=== PATIENT | male | born 1995 | race African-American/Black ===

== ENCOUNTER 2020-12-26 15:24 | Emergency (ER) | payer SELFPAY ==
[2020-12-26] MEDS ORDERED: NA CHLORIDE 0.9% 1,000 ML ONE (19:35)
[2020-12-26] MEDS ORDERED: ONDANSETRON 4 MG/2 ML VIAL ONE (19:35)
[2020-12-26 19:59] LABS: Absolute Lymphocytes (CBC) 1.1 K/uL (0.7-4.9); Basophils % 0.5 % (0-1.3); Hematocrit 43.7 % (39.6-49.0); Lymphocytes % 18.9 % (15.3-44.8); MPV 8.5 fL (7.6-11.3); RBC Red Blood Cell Count 5.76 M/uL (4.33-5.43)
[2020-12-26 20:31] LABS: SARS-COV-2 RT PCR NEGATIVE (NEGATIVE)
[2020-12-26 20:35] LABS: Albumin 3.8 g/dL (3.4-5.0); Bilirubin Direct 0.1 mg/dL (0-0.2); Bilirubin Total 0.5 mg/dL (0.2-1.0); Potassium 3.7 mmol/L (3.5-5.1); Protein, Total 7.7 g/dL (6.4-8.2)
--- NOTE | 2020-12-26 20:37 | EDPHYS ---
Physician Documentation [facility] Name: Dinh Ochoa Age: 25 yrs Sex: Male : 1995 Arrival Date: 12/26/2020 Time: 15:28 Bed 7 Private MD: ED Physician James Latif HPI: 12/26 20:29 This 25 yrs old Black Male presents to ER via Ambulatory with complaints of kb Vomiting/Diarrhea, Headache. 20:29 The patient presents to the emergency department with nausea, vomiting, diarrhea. kb Onset: The symptoms/episode began/occurred last night. Possible causes: unknown. The symptoms are aggravated by nothing. The symptoms are alleviated by nothing. Associated signs and symptoms: Pertinent positives: diarrhea, nausea, vomiting, bodyaches, headache. Severity of symptoms: At their worst the symptoms were moderate in the emergency department the symptoms are unchanged. The patient has not experienced similar symptoms in the past. The patient has not recently seen a physician. Pt reports nausea, vomiting, diarrhea, headache and bodyaches that started last night and have been worse today. Historical: - Allergies: 16:08 No Known Allergies; ll1 - PMHx: 16:08 None; ll1 - PSHx: 16:08 None; ll1 - Immunization history:: Flu vaccine is not up to date. - Social history:: Smoking status: Patient reports the use of cigarette tobacco products, smokes one-half pack cigarettes per day. ROS: 20:32 Cardiovascular: Negative for chest pain, palpitations, and edema, Respiratory: Negative kb for shortness of breath, cough, wheezing, and pleuritic chest pain, MS/Extremity: Negative for injury and deformity, Skin: Negative for injury, rash, and discoloration. 20:32 Constitutional: Positive for body aches. 20:32 Abdomen/GI: Positive for nausea, vomiting, and diarrhea. 20:32 Neuro: Positive for headache. Exam: 20:32 Constitutional: This is a well developed, well nourished patient who is awake, alert, kb and in no acute distress. Head/Face: Normocephalic, atraumatic. Cardiovascular: Regular rate and rhythm with a normal S1 and S2. No gallops, murmurs, or rubs. No pulse deficits. Respiratory: Respirations even and unlabored. No increased work of breathing, no retractions or nasal flaring. Abdomen/GI: Soft, non-tender. No distention Skin: Warm, dry with normal turgor. Normal color. MS/ Extremity: Pulses equal, no cyanosis. Neurovascular intact. Full, normal range of motion. Neuro: Awake and alert, GCS 15, oriented to person, place, time, and situation. Moves all extremities. Normal gait. Vital Signs: 16:06 BP 146 / 94; Pulse 95; Resp 17; Temp 98.6; Pulse Ox 100% ; Weight 159.66 kg; Height 6 ll1 ft. 7 in. (200.66 cm); Pain 7/10; 20:18 BP 130 / 83; Pulse 88; Resp 18; Pulse Ox 98% ; wh 16:06 Body Mass Index 39.65 (159.66 kg, 200.66 cm) ll1 MDM: 19:08 Patient medically screened. kb 20:32 Data reviewed: vital signs, nurses notes. Data interpreted: Pulse oximetry: on room air kb is 98 %. Interpretation: normal. Counseling: I had a detailed discussion with the patient and/or guardian regarding: the historical points, exam findings, and any diagnostic results supporting the discharge/admit diagnosis, lab results, the need for outpatient follow up, a family practitioner, to return to the emergency department if symptoms worsen or persist or if there are any questions or concerns that arise at home. 12/26 19:13 Order name: Basic Metabolic Panel 12/26 19:13 Order name: CBC with Diff; Complete Time: 20:06 kb 12/26 19:13 Order name: Hepatic Function; Complete Time: 20:36 kb 12/26 19:13 Order name: Lipase; Complete Time: 20:36 kb 12/26 19:13 Order name: IV Saline Lock; Complete Time: 19:28 kb 12/26 19:13 Order name: Labs collected and sent; Complete Time: 19:29 kb 12/26 19:13 Order name: Basic Metabolic Panel; Complete Time: 20:36 EDMS 12/26 20:32 Order name: COVID-19/FLU A+B; Complete Time: 20:33 EDMS Administered Medications: 19:26 Drug: NS 0.9% 1000 ml Route: IV; Rate: 1000 ml; Site: right antecubital; 21:23 Follow up: Response: No adverse reaction; IV Status: Completed infusion 19:28 Drug: Zofran (Ondansetron) 4 mg Route: IVP; Site: right antecubital; 21:23 Follow up: Response: No adverse reaction; Nausea is decreased Disposition: 12/27 07:02 Co-signature as Attending Physician, James Latif MD. rn Disposition: 12/26/20 20:36 Discharged to Home. Impression: Nausea and vomiting, Diarrhea, unspecified. - Condition is Stable. - Discharge Instructions: Food Choices to Help Relieve Diarrhea, Adult, Viral Gastroenteritis, Adult, [id number]. - Prescriptions for Zofran 4 mg Oral Tablet - take 1 tablet by ORAL route every 6 hours As needed; 20 tablet. - Medication Reconciliation Form, Thank You Letter, Antibiotic Education, Prescription Opioid Use form. - Follow up: Emergency Department; When: As needed; Reason: Worsening of condition. Follow up: Private Physician; When: 2 - 3 days; Reason: Recheck today's complaints, Continuance of care, Re-evaluation by your physician. Signatures: Dispatcher [employer] EDMI Felisha Lobo, SIGNAL PROCESSING ENGINEER-C SIGNAL PROCESSING ENGINEER-Ckb James Latif MD MD rn Habalo, Winsy, RN RN [place] [employer] mw2 Jefe Robison, RN RN ll1 Corrections: (The following items were deleted from the chart) 12/26 19:47 19:10 CORONAVIRUS+MR.LAB.BRZ ordered. [facility] EDMI 19:48 19:10 Influenza Screen (A \T\ B)+BA.LAB.BRZ ordered. [facility] EDMI 20:45 20:36 12/26/2020 20:36 Discharged to Home. Impression: Nausea and vomiting; Diarrhea, mw2 unspecified. Condition is Stable. Discharge Instructions: Food Choices to Help Relieve Diarrhea, Adult, Viral Gastroenteritis, Adult, [id number]. Prescriptions for Zofran 4 mg Oral Tablet - take 1 tablet by ORAL route every 6 hours As needed; 20 tablet. and Forms are Medication Reconciliation Form, Thank You Letter, Antibiotic Education, Prescription Opioid Use. Follow up: Emergency Department; When: As needed; Reason: Worsening of condition. Follow up: Private Physician; When: 2 - 3 days; Reason: Recheck today's complaints, Continuance of care, Re-evaluation by your physician. kb
--- NOTE | 2020-12-26 20:37 | ER ---
Nurse's Notes [facility] Name: Dinh Ochoa Age: 25 yrs Sex: Male : 1995 Arrival Date: 12/26/2020 Time: 15:28 Bed 7 Private MD: Diagnosis: Nausea and vomiting;Diarrhea, unspecified Presentation: 12/26 16:06 Chief complaint: Patient states: N/V/D, MONIQUE, body aches, SOB for 1 day. No cough. ll1 Coronavirus screen: Client denies travel out of the [place] in the last 14 days. Coronavirus screen: diarrhea, difficulty breathing, fatigue, headache, muscle pain, nausea, shortness of breath, loss of taste or smell, vomiting. Client presents with at least one sign or symptom that may indicate coronavirus-19. Standard/surgical mask placed on the client. Ebola Screen: Patient denies travel to an Ebola-affected area in the 21 days before illness onset. Initial Sepsis Screen: Does the patient meet any 2 criteria? HR > 90 bpm. No. Patient's initial sepsis screen is negative. Does the patient have a suspected source of infection? Yes: Productive cough/pneumonia. Risk Assessment: Do you want to hurt yourself or someone else? Patient reports no desire to harm self or others. Onset of symptoms was December 26, 2020. 16:06 Method Of Arrival: Ambulatory 1 16:06 Acuity: DAYAN 3 ll1 Historical: - Allergies: 16:08 No Known Allergies; ll1 - PMHx: 16:08 None; ll1 - PSHx: 16:08 None; ll1 - Immunization history:: Flu vaccine is not up to date. - Social history:: Smoking status: Patient reports the use of cigarette tobacco products, smokes one-half pack cigarettes per day. Screenin:15 Abuse screen: Denies threats or abuse. Denies injuries from another. Nutritional wh screening: No deficits noted. Tuberculosis screening: No symptoms or risk factors identified. Fall Risk None identified. Assessment: 19:15 General: Appears in no apparent distress. Behavior is calm, cooperative, appropriate wh for age. Pain: Complains of pain in abdomen. Neuro: Level of Consciousness is awake, alert, obeys commands, Oriented to person, place, time, situation, Appropriate for age. Cardiovascular: Capillary refill < 3 seconds. Respiratory: Airway is patent Respiratory effort is even, unlabored, Respiratory pattern is regular, symmetrical. GI: Abdomen is flat, non-distended. GI: Reports lower abdominal pain, upper abdominal pain, nausea. : No signs and/or symptoms were reported regarding the genitourinary system. EENT: No signs and/or symptoms were reported regarding the EENT system. Derm: Skin is intact, is healthy with good turgor, Skin is pink, warm \T\ dry. normal. Musculoskeletal: Circulation, motion, and sensation intact. 20:13 Reassessment: Patient appears in no apparent distress at this time. No changes from previously documented assessment. Patient and/or family updated on plan of care and expected duration. Pain level reassessed. Patient is alert, oriented x 3, equal unlabored respirations, skin warm/dry/pink. Vital Signs: 16:06 BP 146 / 94; Pulse 95; Resp 17; Temp 98.6; Pulse Ox 100% ; Weight 159.66 kg; Height 6 ll1 ft. 7 in. (200.66 cm); Pain 7/10; 20:18 BP 130 / 83; Pulse 88; Resp 18; Pulse Ox 98% ; wh 16:06 Body Mass Index 39.65 (159.66 kg, 200.66 cm) ll1 ED Course: 15:28 Patient arrived in ED. as 16:07 Triage completed. ll1 16:08 Arm band placed on Patient notified of wait time. ll1 19:07 Felisha Lobo FNP-C is [facility]. kb 19:07 James Latif MD is Attending Physician. kb 19:15 Patient has correct armband on for positive identification. Bed in low position. Call light in reach. Side rails up X 1. Pulse ox on. NIBP on. 19:15 Inserted saline lock: 20 gauge in right antecubital area, using aseptic technique. Blood collected. 19:16 Franklin Hou, RN is Primary Nurse. mg2 20:44 No provider procedures requiring assistance completed. IV discontinued, intact, wh bleeding controlled, No redness/swelling at site. Administered Medications: 19:26 Drug: NS 0.9% 1000 ml Route: IV; Rate: 1000 ml; Site: right antecubital; 21:23 Follow up: Response: No adverse reaction; IV Status: Completed infusion 19:28 Drug: Zofran (Ondansetron) 4 mg Route: IVP; Site: right antecubital; 21:23 Follow up: Response: No adverse reaction; Nausea is decreased Outcome: 20:36 Discharge ordered by . kb 20:44 Discharged to home ambulatory. 20:44 Condition: stable 20:44 Discharge instructions given to patient, Instructed on discharge instructions, follow up and referral plans. medication usage, POC Demonstrated understanding of instructions, follow-up care, medications, POC Prescriptions given X 1. 20:45 Patient left the ED. mw2 Signatures: Felisha Lobo, CATEGORY CONSULTANT-C JEMMA-Sumaya Loera Winsy RN JESENIA Ted Renee 2 Franklin Hou, RN RN [facility] [place] Jefe Rboison RN RN ll1
[2020-12-26 22:21] VITALS: BP 146/94; TEMP 98.6; O2SAT 100
== END 2020-12-26 20:45 | disposition home or self-care (01) ==
LOC: ER 15:24
DX: R19.7 Diarrhea, unspecified (principal); Z72.0 Tobacco use; Z20.822 Contact with and (suspected) exposure to COVID-19
CPT/HCPCS: 0240U; 36415; 80048; 80076; 83690; 85025; 96361; 96374; 99284; J2405; J7030

== ENCOUNTER 2024-06-06 13:21 | Emergency (ER) | payer OTHER, SELFPAY ==
[2024-06-06 14:02] LABS: Absolute Basophils 0.1 K/uL (0-0.5); Absolute Eosinophils 0.1 K/uL (0-0.5); Absolute Lymphocytes (CBC) 1.7 K/uL (0.7-4.9); Absolute Monocytes 0.5 K/uL (0.1-1.3); Eosinophils % 1.7 % (0-4.4); Hematocrit 42.6 % (39.6-49.0); Hemoglobin 13.6 g/dL (13.6-17.9); Lymphocytes % 26.6 % (15.3-44.8); MCHC 31.9 g/dL (32.0-36.0); MCV 75.4 fL (80-100); MPV 8.5 fL (7.6-11.3); Monocytes % 7.3 % (3.3-12.3); Neutrophils % 63.4 % (41.7-73.7); Platelets 196 thou/uL (152-406); RBC Red Blood Cell Count 5.64 M/uL (4.33-5.43); Red Cell Distribution Width 15.5 % (12.1-15.2)
[2024-06-06 14:15] LABS: PT Prothrombin Time 11.6 SECONDS (9.4-12.5); Protime INR 1.04
[2024-06-06 14:20] LABS: ALT/SGPT 54 U/L (16-61); AST/SGOT 32 U/L (15-37); Albumin 3.6 g/dL (3.4-5.0); Albumin/Globulin Ratio 0.9 (1.1-1.8); Alkaline Phosphatase 59 U/L (45-117); Anion Gap 9.8 mEq/L (5.0-15.0); BUN Blood Urea Nitrogen 13 mg/dL (7-18); Bicarbonate 24 mEq/L (21-32); Bilirubin Total 0.5 mg/dL (0.2-1.0); Globulin 4.1 g/dL (2.3-3.5); Glomerular Filtration Rate 97 ml/min (=/>90); Glucose Level 92 mg/dL (74-106); Magnesium 2.3 mg/dL (1.6-2.4); NT PRO-BNP 10 pg/mL (<125); Potassium 3.8 mEq/L (3.5-5.1); Protein, Total 7.7 g/dL (6.4-8.2); Sodium Level 138 mEq/L (136-145)
[2024-06-06 14:24] LABS: Bilirubin Direct < 0.2 mg/dL (0-0.2); Bilirubin Indirect, Calculated 0.3 mg/dL (0.2-0.8)
--- NOTE | 2024-06-06 14:43 | RAD REPORT ---
EXAMINATION: ONE VIEW CHEST XR CLINICAL INDICATION: Male, 29 years old. [facility] MAIN CHEST PAIN Bed Name: 18 TECHNIQUE: 1 View, AP supine, X-ray of the chest was performed. [id number]. COMPARISON: No prior exam. FINDINGS: Lungs and pleura: Accentuation of the vascular markings likely from portal technique. No definite acu te process. No effusion. Heart and mediastinum: Normal heart size. Unremarkable mediastinal contours. Osseous structures: No acute abnormality. Tubes/lines: None Other: None. IMPRESSION: No acute intrathoracic abnormality.
[2024-06-06] MEDS ORDERED: KETOROLAC 30 MG/ML INJ ONE (14:46)
--- NOTE | 2024-06-06 15:02 | EDPHYS ---
Physician Documentation [facility] Name: Dinh Ochoa Age: 29 yrs Sex: Male : 1995 Arrival Date: 06/06/2024 Time: 13:21 Bed 18 Private MD: ED Physician James Latif HPI: 06/06 13:53 This 29 yrs old Black Male presents to ER via Ambulatory with complaints of Chest Pain, sb4 Shortness Of Breath. 14:04 The patient or guardian reports chest pain that is located primarily in the substernal sb4 area. The pain does not radiate. Associated signs and symptoms: The patient has no apparent associated signs or symptoms. The chest pain is described as sharp. Duration: The patient or guardian reports multiple episodes, with no pattern. Modifying factors: The symptoms are alleviated by nothing. the symptoms are aggravated by nothing. The patient has not experienced similar symptoms in the past. Historical: - Allergies: 13:35 No Known Allergies; hb - Home Meds: 13:35 None [Active]; hb - PMHx: 13:35 None; hb - PSHx: 13:35 None; hb - Immunization history:: Adult Immunizations up to date. - Infectious Disease History:: Denies. - Social history:: Smoking status: Reported history of juuling and/or vaping. ROS: 14:04 Constitutional: Negative for fever, chills, and weight loss, sb4 14:04 Cardiovascular: Positive for chest pain, 14:04 Respiratory: Positive for shortness of breath, 14:04 All other systems are negative, Exam: 14:04 Constitutional: This is a well developed, well nourished patient who is awake, alert, sb4 and in no acute distress. Head/Face: Normocephalic, atraumatic. Eyes: Extra-ocular motions intact. Periorbital areas with no swelling, redness, or edema. ENT: Mucous membranes moist. Cardiovascular: Regular rate and rhythm with a normal S1 and S2. Respiratory: Lungs have equal breath sounds bilaterally, clear to auscultation and percussion. No rales, rhonchi or wheezes noted. No increased work of breathing, no retractions or nasal flaring. Abdomen/GI: Soft, non-tender, no distension. Skin: Warm, dry with normal turgor. Normal color with no rashes, no lesions, and no evidence of cellulitis. MS/ Extremity: Pulses equal, no cyanosis. Neurovascular intact. Full, normal range of motion. Neuro: Awake and alert, GCS 15, oriented to person, place, time, and situation. Motor strength 5/5 in all extremities. Sensory grossly intact. Vital Signs: 13:32 BP 156 / 92; Pulse 78; Resp 18; Temp 97.3(TE); Pulse Ox 97% on R/A; Weight 163.29 kg; hb Height 6 ft. 7 in. ; Pain 2/10; 14:50 BP 129 / 87; Pulse 73; Resp 17 S; Pulse Ox 99% on R/A; kc6 13:32 Body Mass Index 40.56 (163.29 kg, 200.66 cm) hb 13:32 Pain Scale: Adult hb MDM: 13:31 Patient medically screened. sb4 14:53 Scoring Tools HEART Score: History: ECG: Age: Risk Factors: 1 or 2 risk factors (1), sb4 Troponin: Total Score = 1. 15:00 Data reviewed: vital signs, nurses notes, lab test result(s), EKG, radiologic studies, sb4 and as a result, I will discharge patient. Counseling: I had a detailed discussion with the patient and/or guardian regarding the historical points, exam findings, and any diagnostic results supporting the discharge/admit diagnosis, the presence of at least one elevated blood pressure reading (>120/80) during this emergency department visit, lab results, radiology results, the need for outpatient follow up, for definitive care, to return to the emergency department if symptoms worsen or persist or if there are any questions or concerns that arise at home. Special discussion: Based on the patient's history, exam, and Dx evaluation, there is no indication for emergent intervention or inpatient Tx. It is understood by the patient/guardian that if the Sx's persist or worsen they need to return immediately for re-evaluation. 06/06 13:40 Order name: Basic Metabolic Panel; Complete Time: 14:25 sb4 06/06 13:40 Order name: CBC with Diff; Complete Time: 14:04 sb4 06/06 13:40 Order name: LFT's; Complete Time: 14:25 sb4 06/06 13:40 Order name: Magnesium; Complete Time: 14:25 sb4 06/06 13:40 Order name: NT PRO-BNP; Complete Time: 14:25 sb4 06/06 13:40 Order name: PT-INR; Complete Time: 14:22 sb4 06/06 13:40 Order name: Troponin HS; Complete Time: 14:25 sb4 06/06 13:40 Order name: XRAY Chest (1 view); Complete Time: 14:44 sb4 06/06 13:40 Order name: EKG; Complete Time: 13:41 sb4 06/06 13:40 Order name: Cardiac monitoring; Complete Time: 13:41 sb4 06/06 13:40 Order name: EKG - Nurse/Tech; Complete Time: 13:41 sb4 06/06 13:40 Order name: Labs collected and sent; Complete Time: 13:55 sb4 06/06 13:40 Order name: O2 Per Protocol; Complete Time: 13:41 sb4 06/06 13:40 Order name: O2 Sat Monitoring; Complete Time: 13:41 sb4 EC:45 Rate is 75 beats/min. Rhythm is regular, Normal Sinus Rhythm. IA interval is normal at sb4 162 msec. QRS interval is normal at 106 msec. QT interval is normal at 386 msec. No Q waves. T waves are Normal. No ST changes noted. Clinical impression: Normal ECG and No evidence of ischemia. Interpreted by me. Reviewed by me. Administered Medications: 14:50 Not Given (Other Intervention Used): mg IVP once kc6 14:50 Drug: Ketorolac IM 30 mg IM once Route: IM; Site: left deltoid; kc 15:14 Follow up: Response: No adverse reaction kc6 Disposition: 06/07 07:43 Co-signature as Attending Physician, James Latif MD I reviewed the patient's care rn provided by the Advanced Practice Provider and agree with the diagnosis and treatment plan. Disposition Summary: 06/06/24 15:01 Discharge Ordered Notes: Location: Home sb4 Problem: new sb4 Symptoms: are unchanged sb4 Condition: Stable sb4 Diagnosis - Chest pain, unspecified sb4 Followup: sb4 - With: Emergency Department - When: As needed - Reason: Trouble breathing, Worsening of condition Discharge Instructions: - Discharge Summary Sheet sb4 - Nonspecific Chest Pain, Adult sb4 Forms: - Work release form kc6 - Patient Portal Instructions sb4 - Leadership Thank You Letter sb4 Prescriptions: - Prednisone 20 mg Oral Tablet - take 1 tablet ORAL route every 12 hours for 5 days; 10 tablet; Refills: 0, sb4 Product Selection Permitted Signatures: Dispatcher [employer] James Wade MD MD rn Baxter, Heather, RN RN hb Campbell, Kaitlyn, RN RN kc6 Brown, Sophia, PA-C PA-C sb4
--- NOTE | 2024-06-06 15:02 | ER ---
Nurse's Notes [facility] Name: Dinh Ochoa Age: 29 yrs Sex: Male : 1995 Arrival Date: 06/06/2024 Time: 13:21 Bed 18 Private MD: Diagnosis: Chest pain, unspecified Presentation: 06/06 13:32 Chief complaint: Sharp midsternal chest pain and mild SOB x 4 days. Coronavirus screen: hb At this time, the client does not indicate any symptoms associated with coronavirus-19. Ebola Screen: No symptoms or risks identified at this time. Initial Sepsis Screen: Does the patient meet any 2 criteria? No. Patient's initial sepsis screen is negative. Does the patient have a suspected source of infection? No. Patient's initial sepsis screen is negative. Risk Assessment: Do you want to hurt yourself or someone else? Patient reports no desire to harm self or others. Onset of symptoms was June 02, 2024. 13:32 Method Of Arrival: Ambulatory hb 13:32 Acuity: DAYAN 3 hb Historical: - Allergies: 13:35 No Known Allergies; hb - Home Meds: 13:35 None [Active]; hb - PMHx: 13:35 None; hb - PSHx: 13:35 None; hb - Immunization history:: Adult Immunizations up to date. - Infectious Disease History:: Denies. - Social history:: Smoking status: Reported history of juuling and/or vaping. Screenin:55 [facility] ED Fall Risk Assessment (Adult) History of falling in the last 3 months, kc6 including since admission No falls in past 3 months (0 pts) Confusion or Disorientation No (0 pts) Intoxicated or Sedated No (0 pts) Impaired Gait No (0 pts) Mobility Assist Device Used No (0 pt) Altered Elimination No (0 pt) Score/Fall Risk Level 0 - 2 = Low Risk Oriented to surroundings. Abuse screen: Denies threats or abuse. Denies injuries from another. Nutritional screening: No deficits noted. Tuberculosis screening: No symptoms or risk factors identified. Assessment: 13:56 General: Appears in no apparent distress. comfortable, well groomed, well developed, kc6 Behavior is calm, cooperative, appropriate for age. Pain: Complains of pain in mid-sternal area Pain does not radiate. Pain began 2-3 days ago. Neuro: Level of Consciousness is awake, alert, obeys commands, Oriented to person, place, time, situation, Appropriate for age. Cardiovascular: Reports chest pain, shortness of breath, Capillary refill < 3 seconds Rhythm is sinus rhythm. Respiratory: Airway is patent Trachea midline Respiratory effort is even, unlabored, Respiratory pattern is regular, symmetrical. GI: No signs and/or symptoms were reported involving the gastrointestinal system. : No signs and/or symptoms were reported regarding the genitourinary system. EENT: No signs and/or symptoms were reported regarding the EENT system. Derm: No signs and/or symptoms reported regarding the dermatologic system. Skin is intact, is healthy with good turgor, Skin is pink, warm \T\ dry. Musculoskeletal: No signs and/or symptoms reported regarding the musculoskeletal system. Circulation, motion, and sensation intact. Capillary refill < 3 seconds, Range of motion: intact in all extremities. Vital Signs: 13:32 BP 156 / 92; Pulse 78; Resp 18; Temp 97.3(TE); Pulse Ox 97% on R/A; Weight 163.29 kg; hb Height 6 ft. 7 in. ; Pain 2/10; 14:50 BP 129 / 87; Pulse 73; Resp 17 S; Pulse Ox 99% on R/A; kc6 13:32 Body Mass Index 40.56 (163.29 kg, 200.66 cm) hb 13:32 Pain Scale: Adult hb ED Course: 13:24 Patient arrived in ED. im 13:27 Crystal Peterson [facility]-C [facility]. sb4 13:27 James Latif MD is Attending Physician. sb4 13:27 Mariah Ortiz, JESENIA is Primary Nurse. kc6 13:35 Triage completed. hb 13:35 Arm band placed on. hb 13:35 Client placed on continuous cardiac and pulse oximetry monitoring. NIBP monitoring hb applied. certified legal investigator on. Pulse ox on. NIBP on. 13:35 EKG done, by ED staff, reviewed by Crystal Peterson PA-C. hb 13:55 Patient has correct armband on for positive identification. Bed in low position. Call kc6 light in reach. Side rails up X 1. Pillow given. 13:55 Initial lab(s) drawn, by me, sent to lab. Missed attempt(s): 20 gauge in right kc6 antecubital area. Missed attempt(s): 20 gauge in right antecubital area. Patient maintains SpO2 saturation greater than 95% on room air. 14:29 XRAY Chest (1 view) In Process Unspecified. EDMS 15:14 No provider procedures requiring assistance completed. Patient did not have IV access kc6 during this emergency room visit. Administered Medications: 14:50 Not Given (Other Intervention Used): [id number] mg IVP once kc6 14:50 Drug: Ketorolac IM 30 mg IM once Route: IM; Site: left deltoid; kc6 15:14 Follow up: Response: No adverse reaction kc6 Medication: 15:15 VIS not applicable for this client. kc6 Outcome: 15:01 Discharge ordered by . sb4 15:14 Discharged to home ambulatory, kc6 15:14 Condition: good 15:14 Discharge instructions given to patient, Instructed on discharge instructions, follow up and referral plans. medication usage, Demonstrated understanding of instructions, follow-up care, medications, Prescriptions given X 1, 15:15 Patient left the ED. kc6 Signatures: Dispatcher [employer] EDMS Annabel Urena RN RN Mariah Maldonado RN RN kc6 Crystal Peterson PAUsama PA-Carrol Harp
[2024-06-06 15:19] VITALS: TEMP 97.3
[2024-06-06 15:20] VITALS: BP 129/87; O2SAT 99
--- NOTE | 2024-06-07 12:49 | EKG ---
Test Date: 2024-06-06 Test Time: 13:32:46 Culinary Manager: EDGARD MEASUREMENT RESULTS: Intervals: Rate: 75 VT: 162 QRSD: 106 QT: 386 QTc: 431 Sargent: P: 44 VT: 162 QRS: 16 T: 28 INTERPRETIVE STATEMENTS: Normal sinus rhythm Normal ECG Compared to ECG 08/27/2005 22:06:00 No significant changes Electronically Signed On 06-07-24 12:47:02 CDT by Chilo Anne
== END 2024-06-06 15:15 | disposition home or self-care (01) ==
LOC: ER 13:21
DX: R07.9 Chest pain, unspecified (principal); R06.02 Shortness of breath
CPT/HCPCS: 36415; 71045; 80048; 80076; 83735; 83880; 84484; 85025; 85610; 93005; 96372; 99285

== ENCOUNTER 2025-07-14 16:25 | Emergency (ER) | payer SELFPAY ==
--- NOTE | 2025-07-14 16:45 | ER ---
Nurse's Notes [facility] Name: Dinh Ochoa Age: 30 yrs Sex: Male : 1995 Arrival Date: 07/14/2025 Time: 16:25 Bed 5 Private MD: Diagnosis: Cellulitis of right finger Presentation: 07/14 16:35 Chief complaint: Patient states: pt c/o pain, redness and swelling in right middle kb4 finger that's "only getting worse". Coronavirus screen: At this time, unable to obtain information related to travel outside the [place] Ebola Screen: No symptoms or risks identified at this time. Initial Sepsis Screen: Does the patient meet any 2 criteria? No. Patient's initial sepsis screen is negative. Does the patient have a suspected source of infection? No. Patient's initial sepsis screen is negative. Risk Assessment: Do you want to hurt yourself or someone else? Patient reports no desire to harm self or others. Onset of symptoms was July 11, 2025. 16:35 Method Of Arrival: Ambulatory [facility] 16:35 Acuity: DAYAN 4 kb4 Triage Assessment: 16:39 General: Appears in no apparent distress. comfortable, Behavior is calm, cooperative. kb4 Pain: Complains of pain in dorsal aspect of distal phalanx of right middle finger and palmar aspect of distal phalanx of right middle finger. Musculoskeletal: Range of motion: limited in DIP of right middle finger. Injury Description: no injury reported, swelling/redness and pain to right middle finger, pt [place] the [place]. Historical: - Allergies: 16:39 No Known Allergies; kb4 - Immunization history:: Adult Immunizations unknown. - Infectious Disease History:: Denies. - Social history:: Smoking status: Reported history of juuling and/or vaping. Screenin:45 [facility] ED Fall Risk Assessment (Adult) History of falling in the last 3 months, kb4 including since admission No falls in past 3 months (0 pts) Confusion or Disorientation No (0 pts) Intoxicated or Sedated No (0 pts) Impaired Gait No (0 pts) Mobility Assist Device Used No (0 pt) Altered Elimination No (0 pt) Score/Fall Risk Level 0 - 2 = Low Risk. Abuse screen: Denies threats or abuse. Denies injuries from another. Nutritional screening: No deficits noted. Tuberculosis screening: No symptoms or risk factors identified. Assessment: 16:44 General: Appears in no apparent distress. comfortable, Behavior is calm, cooperative. kb4 Neuro: Level of Consciousness is awake, alert, obeys commands, Oriented to person, place, time, situation. Cardiovascular: Patient's skin is warm and dry. Respiratory: Airway is patent Respiratory effort is even, unlabored, Respiratory pattern is regular, symmetrical. Derm: Skin is intact, Skin is pink, warm \\T\\ dry. Vital Signs: 16:35 BP 155 / 103; Pulse 90; Resp 18; Temp 98.5; Pulse Ox 98% on R/A; kb4 ED Course: 16:26 Patient arrived in ED. mr 16:27 Crystal [facility] sb[facility] 16:27 Anurag Weaver MD is Attending Physician. sb4 16:35 Sepideh Perla, JESENIA is Primary Nurse. kb4 16:39 Triage completed. kb4 16:45 Patient has correct armband on for positive identification. Call light in reach. kb4 16:45 No provider procedures requiring assistance completed. Patient did not have IV access kb4 during this emergency room visit. 16:46 Arm band placed on. kb4 16:46 Provided Education on: ABX USE. kb4 Administered Medications: 16:59 Drug: Doxycycline PO 100 mg PO once Route: PO; kb4 17:00 Follow up: Response: Medication administered at discharge. kb4 Medication: 16:46 VIS not applicable for this client. kb4 Outcome: 16:44 Discharge ordered by MD. sb4 17:00 Discharged to home ambulatory, kb4 17:00 Condition: good 17:00 Discharge instructions given to patient, Instructed on discharge instructions, follow up and referral plans. medication usage, Demonstrated understanding of instructions, follow-up care, medications, Prescriptions given X 1, 17:00 Patient left the ED. kb4 Signatures: Jaymie Bosch, Jeff Reg Crystal Peterson PA-C PA-C sb4 Sepideh Perla, RN RN kb4
--- NOTE | 2025-07-14 16:45 | EDPHYS ---
Physician Documentation [facility] Name: Dinh Ochoa Age: 30 yrs Sex: Male : 1995 Arrival Date: 07/14/2025 Time: 16:25 Bed 5 Private MD: ED Physician Anurag Weaver HPI: 07/14 16:46 This 30 yrs old Black Male presents to ER via Ambulatory with complaints of Finger sb4 Injury. 16:46 the patient presents with a swollen area of the palmar aspect of distal phalanx of sb4 right middle finger. Patient reports swelling on the medial aspect of his right middle finger for a few days now with associated pain. Denies any drainage. Denies any trauma to the area. No fever or chills. Historical: - Allergies: 16:39 No Known Allergies; kb4 - Immunization history:: Adult Immunizations unknown. - Infectious Disease History:: Denies. - Social history:: Smoking status: Reported history of juuling and/or vaping. ROS: 16:46 Constitutional: Negative for fever, chills, and weight loss, sb4 16:46 Skin: Positive for per HPI, 16:46 All other systems are negative, Exam: 16:46 Constitutional: This is a well developed, well nourished patient who is awake, alert, sb4 and in no acute distress. Head/Face: Normocephalic, atraumatic. Eyes: Extra-ocular motions intact. Periorbital areas with no swelling, redness, or edema. ENT: Mucous membranes moist. Respiratory: No increased work of breathing, no retractions or nasal flaring. 16:46 Skin: cellulitis, that is mild, well demarcated, on the palmar aspect of distal phalanx of right middle finger, Vital Signs: 16:35 BP 155 / 103; Pulse 90; Resp 18; Temp 98.5; Pulse Ox 98% on R/A; kb4 Procedures: 16:46 I \T\ D: Incision and drainage was performed for an abscess of the right palmar aspect of sb4 distal phalanx of right middle finger Prepped with Betadine, Incised with 18 gauge. Drained small amount bloody fluid. Cultures obtained. Dressing: triple antibiotic \T\ bandaid the patient tolerated the procedure well. MDM: 16:27 Medical Screening Exam initiated sb4 16:47 Differential diagnosis: abscess, allergic reaction, cellulitis, insect bite. Data sb4 reviewed: vital signs, nurses notes, and as a result, I will discharge patient. Counseling: I had a detailed discussion with the patient and/or guardian regarding the historical points, exam findings, and any diagnostic results supporting the discharge/admit diagnosis, the need for outpatient follow up, for definitive care, to return to the emergency department if symptoms worsen or persist or if there are any questions or concerns that arise at home. 07/14 16:38 Order name: Wound Culture sb4 Administered Medications: 16:59 Drug: Doxycycline PO 100 mg PO once Route: PO; kb4 17:00 Follow up: Response: Medication administered at discharge. kb4 Disposition Summary: 07/14/25 16:44 Discharge Ordered Notes: Location: Home sb4 Problem: new sb4 Symptoms: have improved sb4 Condition: Stable sb4 Diagnosis - Cellulitis of right finger sb4 Followup: sb4 - With: Emergency Department - When: As needed - Reason: Fever > 102 F, Worsening of condition Discharge Instructions: - Discharge Summary Sheet sb4 - Cellulitis, Adult sb4 Forms: - Antibiotic Education sb4 - Patient Portal Instructions sb4 - Leadership Thank You Letter sb4 Prescriptions: - Doxycycline Hyclate 100 mg Oral tablet - take 1 tablet ORAL route every 12 hours; 14 tablet; Refills: 0, Product sb4 Selection Permitted Signatures: Dispatcher [employer] Crystal Hill PA-C PA-C sb4 Sepideh Perla RN RN kb4 Corrections: (The following items were deleted from the chart) 16:39 16:39 Wound Culture+[id number] ordered. DIPTI RESENDEZ
[2025-07-14] MEDS ORDERED: DOXYCYCLINE 100 MG CAP PO ONE (16:55)
[2025-07-14 17:22] VITALS: BP 155/103; TEMP 98.5; O2SAT 98
== END 2025-07-14 17:00 | disposition home or self-care (01) ==
LOC: ER 16:25
PROC: 0H9FXZZ Drainage of Right Hand Skin, External Approach (ICD-10-PCS; principal; 2025-07-14)
DX: L03.011 Cellulitis of right finger (principal)
CPT/HCPCS: 87070; 87205; 99283